=== PATIENT | male | born 1960 | race Caucasian/White ===

== ENCOUNTER → 2017-10-16 16:11 | Outpatient (CLI) | payer OTHER, SELFPAY | PROVIDERS: Visit Provider Physician Assistant | DX: Z79.899 Other long term (current) drug therapy (principal) ==

== ENCOUNTER 2020-01-07 09:45 | Emergency (ER) | payer OTHER, SELFPAY ==
[2020-01-07 09:55] VITALS: BP 135/75; PULSE 86; RESP 17; TEMP 36.9; O2SAT 98; BMI 32.4
--- NOTE | 2020-01-07 10:04 | XR_ITS ---
PROCEDURE: XR ORTHOPANTOGRAM CLINICAL INDICATION: left lower jaw swelling x 1 week. COMPARISON: No exams were available for comparison FINDINGS: No fracture or dislocation. No lytic or blastic change. There is normal mineralization. There is no evidence of periodontitis or periapical abscesses demonstrated. Bilaterally all mandibular molar and premolar teeth are absent. Other findings:The mandibular condyles are well aligned. IMPRESSION: 1. No demonstrated acute findings. Dictated by: Liliana Kirk 01/07/2020 10:47 Electronically signed by Liliana Kirk in [place] 01/07/2020 10:47
[2020-01-07 10:15] VITALS: BP 110/66; PULSE 80; RESP 20; O2SAT 98
--- NOTE | 2020-01-07 10:15 | PC.NURSE ---
PT WITH RAD AT THIS TIME
--- NOTE | 2020-01-07 10:20 | PC.NURSE ---
PT BACK FROM AT THIS TIME
--- NOTE | 2020-01-07 10:24 | PC.NURSE ---
Addendum entered by Tabatha Garcia RN 01/07/20 10:25: *starts Original Note: Spoke with Dr. Huerta and was given appointment for 9a tomorrow. States to continue the amoxicillin in addition to the medication our physician startes.
--- NOTE | 2020-01-07 10:28 | HMH.EDGENADL ---
ED Disposition Clinical Impression: Dental abscess, Dental caries Disposition: Home, Self-Care Condition on Discharge: Fair Instructions: DI for Tooth Decay, Tooth Abscess Additional Instructions: You have been evaluated for a dental abscess. Please follow-up with dentistry at 9 AM tomorrow. Take amoxicillin as prescribed. Take Tylenol and ibuprofen for pain. Return to the emergency department for any new or worsening swelling, difficulty swallowing, sore throat, headache. Referrals: Christopher Olson MD [Primary Care Provider] - Time of Disposition: 11:21 - Critical Care Critical Care Time: No Attestation: On 01/07/20, the high probability of a clinically significant, sudden or life threatening deterioration of the following system(s) required my full and direct attention, intervention and personal management. The time I documented below is in addition to time spent performing reported procedures but includes the following listed in this critical care notation. Medical Decision Making - Medical Records Medical records reviewed: Yes: I reviewed the patient's medical records. - Luis Inquiry Pt receiving controlled substance: No Vital Signs: 01/07/20 09:55 01/07/20 10:15 01/07/20 10:30 Temperature 98.5 F Temperature Source Oral Pulse Rate [Radial] 86 80 71 Respiratory Rate 17 20 20 Blood Pressure [Right Arm] 135/75 110/66 128/76 Blood Pressure Mean [Right Arm] 95 80 93 Blood Pressure Source [Right Arm] Automatic Cuff Automatic Cuff Automatic Cuff Blood Pressure Position [Right Arm] Sitting Supine 02 Sat by Pulse Oximetry 98 98 98 Oxygen Delivery Method Room Air Room Air Room Air 01/07/20 10:58 Temperature Temperature Source Pulse Rate [Radial] 78 Respiratory Rate 18 Blood Pressure [Right Arm] 125/72 Blood Pressure Mean [Right Arm] 89 Blood Pressure Source [Right Arm] Automatic Cuff Blood Pressure Position [Right Arm] Supine 02 Sat by Pulse Oximetry 97 Oxygen Delivery Method Room Air Orders (Tests/Meds): ED MEDICATIONS Discontinued Medications Generic Name Dose Route Start Last Admin Trade Name Freq PRN Reason Stop Dose Admin Ketorolac Tromethamine 15 mg 01/07/20 10:39 01/07/20 10:49 Toradol 30mg/Ml Vial IM 01/07/20 10:40 15 mg ONCE ONE Administration Lidocaine HCl 10 ml 01/07/20 10:41 01/07/20 10:50 Lidocaine 1% 10ml Mdv IJ 01/07/20 10:42 10 ml ONCE ONE Administration Medical Decision Narrative: 59-year-old male with poor dentition presenting to the emergency department with pain, swelling, dental caries. Most likely diagnosis is a periapical abscess. Will obtain Panorex. Patient is not systemically ill, doubt bacteremia or sepsis. Area of swelling is inconsistent with deep space abscess of the neck or other soft tissue spaces. Will obtain Panorex. Patient given 15 mg of IM Toradol. Dental block performed. Abscess opened with an 11 blade scalpel. Will be able to see dentistry tomorrow morning at 9 AM. General Adult HPI - General Chief complaint: Dental/Oral Stated complaint: left jaw pain and swollen Time Seen by Provider: 01/07/20 09:58 Mode of Arrival: Ambulatory Limitations: No Limitations Description of Symptoms (Recalled from ER Triage Doc. by RN): left side of jaw swollen x 3 days. Dentist started him on Amoxicillin yesterday and he feels as if it is getting worse. - History of Present Illness HPI narrative: 59-year-old male presenting to the emergency department with left-sided jaw pain. Symptoms have been present for the last 4 days but worsening in the last 24 hours. He noticed dental pain on his left lower molar. Then developed an area of painful swelling. Now feels like his whole lower jaw is swollen. Can feel swelling outside of his lower cheek. Pain is described as throbbing. Worse when he tries to eat. Has taken ibuprofen for pain. No drainage inside of his mouth. No fevers, chills, nausea, vomiting. He called nm
[2020-01-07 10:30] VITALS: BP 128/76; PULSE 71; RESP 20; O2SAT 98
[2020-01-07 10:58] VITALS: BP 125/72; PULSE 78; RESP 18; O2SAT 97
[2020-01-07 11:30] VITALS: BP 129/76; PULSE 81; RESP 18; O2SAT 95
[2020-01-07 11:42] VITALS: BP 129/76; PULSE 81; RESP 18; TEMP 36.9; O2SAT 95
== END 2020-01-07 11:44 | disposition home or self-care (01) ==
PROVIDERS: Emergency Provider Emergency Medicine; PCP Emergency Medicine
DX: K04.7 Periapical abscess without sinus (principal); K02.9 Dental caries, unspecified; I10 Essential (primary) hypertension; F41.9 Anxiety disorder, unspecified; F17.210 Nicotine dependence, cigarettes, uncomplicated; Z79.899 Other long term (current) drug therapy
CPT/HCPCS: 41800; 70355; 96372; 99284

== ENCOUNTER 2025-05-07 11:04 | Emergency (ER) | payer OTHER, SELFPAY ==
[2025-05-07 11:15] VITALS: BP 173/85; PULSE 86; RESP 18; TEMP 37; O2SAT 98; BMI 32.7
--- NOTE | 2025-05-07 11:46 | CA_ITS ---
FINAL REPORT CLINICAL HISTORY: PT HIT LT ROMERO 3 WKS AGO WITH PIECE OF WOOD HAD SWELLING AND BRUISING. LAST COUPLE OF DAYS PT HAS BEEN CRAWLING ON KNEES FOR WORK NO HAS INCREASED EDEMA AND PAIN LT KNEE AND CALF FINDINGS: DUPLEX VENOUS SONOGRAPHY OF THE LEFT LOWER EXTREMITY Multiple transverse and longitudinal scans were performed of the femoropopliteal deep venous system, with augmentation and compression maneuvers. Normal phasic flow was noted in the visualized deep venous system. No intraluminal increased echogenicity is noted to suggest thrombus. There is normal compression and augmentation of the venous structures. No abnormal venous collaterals are seen. There is a popliteal cyst with internal echoes, may be hemorrhagic. IMPRESSION: No evidence of deep venous thrombosis of the left lower extremity. Reviewed, Interpreted and Dictated by July Richardson MD Transcribed by Maggi Woo Authenticated and [facility]
--- NOTE | 2025-05-07 11:46 | CT_ITS ---
FINAL REPORT TECHNIQUE: Axial imaging of the chest is obtained after the administration of contrast. 3-D MIP reformatted images were also obtained and reviewed per PE protocol. This study was performed with techniques to keep radiation doses as low as reasonably achievable, (ALARA). Individualized dose reduction techniques using automated exposure control or adjustment of mA and/or kV according to the patient's size were employed. CLINICAL HISTORY: Short of breath, chest pain, LLE swelling FINDINGS: The pulmonary arteries are well filled. There is no evidence of pulmonary embolus. There is no aortic dissection. Heart size is normal. There is no mediastinal, hilar, or axillary lymphadenopathy. There is evidence of granulomatous disease. There is a 4 mm nodule posterior to the left major fissure, likely intrafissural lymph node. This is seen on series 5, image 68.. There is no pleural or pericardial effusion. Limited evaluation of the upper abdomen is without acute abnormality. No acute osseous abnormality. IMPRESSION: No evidence of pulmonary embolism or aortic dissection. Nodule posterior to the left major fissure, likely intrafissural lymph node. Recommend follow-up after risk stratification using Fleischner's criteria. Reviewed, Interpreted and Dictated by July Richardson MD Transcribed by Maggi Woo Authenticated and [facility]
--- NOTE | 2025-05-07 11:46 | ECG_ITS ---
APPROVED REPORT Exam: Resting ECG HR:69 bpm ECG Measurements Heart Rate 69 AXES SC 176 P 41 QRSd 97 QRS 28 QT 372 T 46 QTc 391 Conclusion SINUS RHYTHM NORMAL ECG UNCONFIRMED REPORT No STEMI. Electronically signed by : NIKKY ZAVALA, 05/07/2025 15:23:47
--- NOTE | 2025-05-07 11:48 | ED_ITS ---
Discharge Plan Disposition Patient Disposition: Home, Self-Care Prescriptions Prescriptions: New lisinopril 20 mg tablet 20 mg PO DAILY Qty: 14 0RF No Action aspirin 81 mg Tablet 81 mg PO DAILY Beet Root-Magnesium 150 mg Tablet 1 tab PO DAILY Referrals Follow up/Referrals: Leela Campuzano MD [Physician, Pulmonology] - See instructions Mg Badillo MD [Primary Care Provider, Family Practice] - See instructions Activity Restrictions/Add. Instructions Additional Instructions/Restrictions: You can wear a knee brace or Chaparro bandage to your left knee or compression stockings to help with swelling and pain in your left leg. You had a ruptured cyst in the back of your knee that likely explains your symptoms. I am prescribing you a 2-week course of your previously prescribed lisinopril to help with your high blood pressure. I do encourage you to follow-up with your primary care physician for additional refills and to ensure that your symptoms are improving. You are also found to have a pulmonary nodule in the left lung. This will need follow-up with our lung specialist, Dr. Campuzano. I have included the referral here. I encourage you to contact their office to arrange follow-up. If you develop any new or worsening symptoms, or if you become concerned for your health for any reason, return to the emergency department for evaluation. Clinical Impressions Clinical Impression: Rupture of popliteal cyst, Hypertension, Incidental pulmonary nodule Print Language Print Language: Trinidadian Discharge ED Provider: Reggie Buchanan Adult HPI General Chief complaint: PAIN Stated complaint: left leg swollen, cramping, painful Time Seen by Provider: 05/07/25 11:35 Mode of Arrival: Ambulatory Source of Information: Patient Description of Symptoms (Recalled from ER Triage Doc. by RN): pt presents to the er for LLE pain and swelling, states he hurt his leg 3 weeks ago states a block of firewood hit it, reports increased swelling and pain for the last week, reports pain 5/10, constant, and aching, denies shortness of breath or chest pain History of Present Illness HPI narrative: Roxanne Marie is a 64y male with a history of hypertension, not on any medications who presents to the emergency department for complaints of left lower extremity swelling and pain as well as chest pain and shortness of breath. Patient said 3 weeks ago, he was hit in the left peraza by a piece of wood. He had some swelling at that time but the bruising and swelling resolved. Over the last week, he has been crawling on the work for and has had worsening swelling and pain to his left calf and ankle that seems to be worse at night. He states that he has had a blood clot over 30 years ago in his leg after an injury and that this feels similar. Over the last 2 days, he also reports intermittent left-sided sharp chest pain with deep breathing. He has stopped smoking recently and states that his overall shortness of breath seems to have improved but he does still get short of breath with exertion. He is not currently on any blood thinning medications. Related Data Home Medications ?Medication ?Instructions ?Recorded ?Confirmed aspirin 81 mg tablet 81 mg PO DAILY 05/07/2504/11 magnesium oxide 150 mg-herbal 1 tab PO DAILY 05/07/25 05/07/25 drugs tablet (Beet Root-Magnesium) Previous Rx's ?Medication ?Instructions ?Recorded lisinopril 20 mg tablet 20 mg PO DAILY #14 tabs 04/11 02/01 Allergies Allergy/AdvReac Type Severity Reaction Status Date / Time No Known Allergies Allergy Verified 05/07/25 11:22 [facility] Disclaimer: The information contained in this section may have been updated after the patient was seen, as this information can be updated by other users. Medical History (Updated 05/07/25 @ 14:37 by Reggie Buchanan MD) Alcohol use Osteoarthritis Peripheral neuropathy Obesity Hyperlipidemia Hypertension Anxiety Social History Smoking Status: Former smoker tobacco type: cigarettes packs per day: 2 second hand exposure: Yes alcohol intake: current alcohol intake frequency: 3 or more drinks per day substance use type: denies use current occupational status: employed Travel in the last 8 weeks?: None household members: none housing: house Have you lived/traveled outside [place] in past 30 days?: No Contact w/someone who lives/traveled outside [place] past 30 days?: No Exposure to someone with infectious disease in past 14 days?: No Do you have a fever (greater than 100.4 F or 38 C)?: No Have you tested positive for COVID-19?: No Exposed to someone with COVID-19 in past 14 days?: No Do you have a sore throat?: No Do you have a cough?: No Do you have any weakness?: No Do you have any diarrhea?: No Are you experiencing any unusual bleeding?: No Do you have any muscle aches/pain?: No Do you have any abdominal pain?: No Are you experiencing loss of taste or smell?: No Other Medical History Have you received the Flu Vaccine for this season: No Have you received the Pneumonia Vaccine: No ROS Obtained: Yes Systems reviewed as appropriate & no additional complaints except as documented Physical Exam General General appearance: alert and in no apparent distress Head Head exam: atraumatic Eye Eye exam: Present normal appearance ENT ENT exam: Present normal external ear exam Neck Neck exam: Present full ROM Chest Chest inspection: Present symmetric chest wall rise Respiratory Respiratory exam: Present normal lung sounds bilaterally; Absent respiratory distress, wheezes or stridor Cardiovascular Cardiovascular exam: Present regular rate and normal rhythm Abdominal Exam Abdominal exam: Present soft; Absent tenderness or guarding exam: Present deferred Extremities Exam Extremities exam: Present normal inspection Expanded Lower Extremity Exam Left: Leg image: 2 1. tenderness, no significant edema, no erythema Comment: Left lower extremity: 2+ DP and PT pulses. Tenderness over the left calf and popliteal area without swelling, erythema. Back Exam Back exam: Present normal inspection Neurological Exam Neurological exam: Present alert and oriented X3 Psychiatric Psychiatric exam: Present normal affect Skin Skin exam: Present warm and dry Medical Decision Making Medical Records Screening: Per USPSTF and CDC recommendations, given the prevalence of disease in our region, it is our hospital?s policy to screen for HIV and viral Hepatitis for all patients aged 18 and over and those with ongoing risk factors. Luis Inquiry Pt receiving controlled substance: No Vital Signs: 05/07/25 11:15 Temperature 98.6 F Temperature Source Oral Pulse Rate [Left Radial] 86 Respiratory Rate 18 Blood Pressure [Right Arm] 173/85 H Blood Pressure Mean [Right Arm] 114 Blood Pressure Source [Right Arm] Automatic Cuff Blood Pressure Position [Right Arm] Sitting 02 Sat by Pulse Oximetry 98 Oxygen Delivery Method Room Air Lab Data Lab Results 05/07/25 11:55: WBC 8.5, RBC 4.34 L, Hgb 13.6 L, Hct 41.5 L, MCV 95.6 H, MCH 31.3 H, MCHC 32.8, RDW 13.6, Plt Count 229, MPV 9.1, Neut % (Auto) 62.5, Lymph % (Auto) 23.9, [place] % (Auto) 9.7 H, Eos % (Auto) 1.6, Baso % (Auto) 0.9, Neut # (Auto) 5.3, Lymph # (Auto) 2.0, [place] # (Auto) 0.8, Eos # (Auto) 0.1, Baso # (Auto) 0.1, Sodium 134 L, Potassium 4.5, Chloride 102, Carbon Dioxide 27, Anion Gap 9.5, BUN 18, Creatinine 1.30 H, Estimated Creat Clear 94, Estimated GFR 56 L , Est GFR ( Amer) 67, Glucose 92, Calcium 9.4, Magnesium 2.1, Total Bilirubin 0.7, AST 31, ALT 21, Alkaline Phosphatase 88, Total Creatine Kinase 46 L, Troponin I < 0.01, NT-Pro-B Natriuret Pep 104, Total Protein 7.9, Albumin 4.4, Globulin 3.5 H, Albumin/Globulin Ratio 1.3 05/07/25 11:55 05/07/25 11:55 Orders (Tests/Meds): ED MEDICATIONS Generic Name Dose Route Start Last Admin Trade Name Freq PRN Reason Stop Dose Admin Sodium Chloride 10 ml 05/07/25 12:57 05/07/25 12:58 Sodium Chloride 0.9% 10ml Syr (Rad Only) IV 06/06/25 12:56 10 ml NEEDED PRN Administration Maintain IV Site Discontinued Medications Generic Name Dose Route Start Last Admin Trade Name Freq PRN Reason Stop Dose Admin Iopamidol 80 ml 05/07/25 12:57 05/07/25 12:58 Iopamidol-370 (76%);100ml Bottle IV 05/07/25 12:58 80 ml ONCE ONE Administration Sodium Chloride 50 ml 05/07/25 12:57 05/07/25 12:58 0.9 % Sodium Chloride 50 Ml Vial IV 05/07/25 12:58 50 ml ONCE ONE Administration ORDERS Category Date Time Status CT angio chest PE protocol Stat Cat Scan 05/07/25 11:46 Completed BNP [NT Pro Brain Natriuretic Pep.] Stat Lab 05/07/25 11:55 Completed CBC w/Auto Diff [Complete Blood Count Auto Diff] Stat Lab 05/07/25 11:55 Completed CK [Creatine Kinase] Stat Lab 05/07/25 11:55 Completed CMP [Comprehensive Metabolic Panel] Stat Lab 05/07/25 11:55 Completed Magnesium Stat Lab 05/07/25 11:55 Completed Troponin I Q3H Lab 05/07/25 15:00 Ordered Troponin I Q3H Lab 05/07/25 18:00 Ordered Troponin I Stat Lab 05/07/25 11:55 Completed CA venous doppler LE LT Stat Y 05/07/25 11:46 Completed ECG Data Tracing #1: I reviewed this ECG and interpreted as documented below: Normal sinus rhythm. No ST elevation or depression. QTc normal at 391 Medical Decision Narrative: Roxanne Marie is a 64y male with a history of hypertension, not on any medications who presents to the emergency department for complaints of left lower extremity swelling and pain as well as chest pain and shortness of breath. Patient said 3 weeks ago, he was hit in the left peraza by a piece of wood. He had some swelling at that time but the bruising and swelling resolved. Over the last week, he has been crawling on the work for and has had worsening swelling and pain to his left calf and ankle that seems to be worse at night. He states that he has had a blood clot over 30 years ago in his leg after an injury and that this feels similar. Over the last 2 days, he also reports intermittent left-sided sharp chest pain with deep breathing. He has stopped smoking recently and states that his overall shortness of breath seems to have improved but he does still get short of breath with exertion. He is not currently on any blood thinning medications. On arrival, patient is hypertensive but otherwise hemodynamically stable. In no acute respiratory distress with appropriate oxygen saturation. Physical exam, stated above, revealed overall well-appearing male in no respiratory distress. Cardiopulmonary exam without wheezing, rales or rhonchi. No murmurs or rubs. Left lower extremity shows tenderness over the left calf and popliteal area without swelling or erythema. He has 2+ DP and PT pulses and sensation grossly intact distally. No motor deficits. Color appears well. Differential diagnosis includes, but is not limited to: DVT, pulmonary embolism, rhabdomyolysis, Garcia's cyst, pneumonia, ACS, among others. The most morbid conditions were considered and workup was based on these. Workup included EKG, CT angio pulmonary embolism, left lower extremity DVT ultrasound, CBC, CMP, magnesium level, CK, troponin, BNP. EKG without ischemic changes. See interpretation above. Laboratory studies are grossly nonactionable. No leukocytosis. Mild anemia with hemoglobin of 13.6, hematocrit of 41.5. Platelets within normal limits. Mild hyponatremia at 134. Electrolytes otherwise within normal limits. No PENELOPE and creatinine is close to baseline at 1.3. BUN is normal. Magnesium normal at 2.1. Troponin less than 0.01. CK was normal at 46. CT pulmonary embolism interpreted by me personally. No pulmonary embolism, aortic dissection. Patient does have an incidentally found nodule in the left major fissure. Will give follow-up with pulmonology. DVT ultrasound showed no evidence of DVT. Patient likely has a ruptured hemorrhagic cyst in the popliteal area. This likely explains patient's symptomatology. Encourage patient to use compression stockings/Chaparro bandages to help with pain. Also encouraged him to follow-up with his primary care doctor. Patient states that he has tried to get in with his primary doctor early this month but is completely out of his lisinopril 20 mg daily that he had been taking for many years. Will send 2-week prescription but encouraged him to seek care with his primary care doctor for continued refills and management of his chronic conditions. All questions were answered. He demonstrated understanding and was in agreement this plan. He was then discharged from the emergency department in stable condition. Critical Care Critical Care Time Critical Care Time: No
[2025-05-07 12:00] LABS: Hematocrit 41.5 % (42.0-52.0); Hemoglobin 13.6 g/dL (14.1-18.0); Immature Granulocytes % 1.4 %; Mean Corpuscular HGB Conc 32.8 g/dL (31.8-35.4); Mean Corpuscular Hemoglobin 31.3 pg (27.0-31.2); Mean Corpuscular Volume 95.6 fl (80-94); Nucleated Red Blood Cells % 0 %; Platelet Count 229 K/mm3 (142-424); Red Blood Count 4.34 M/mm3 (4.60-6.20); Red Cell Distribution Width-SD 47.7 fL; White Blood Count 8.5 K/mm3 (4.8-10.8)
[2025-05-07 12:13] LABS: Alanine Aminotransferase 21 U/L (12-78); Albumin Level 4.4 g/dl (3.5-5.0); Albumin/Globulin Ratio 1.3 (1.1-1.8); Alkaline Phosphatase 88 U/L (38-126); Anion Gap 9.5 mEq/L (5-15); Aspartate Amino Transferase 31 U/L (17-59); Bilirubin,Total 0.7 mg/dl (0.2-1.3); Blood Urea Nitrogen 18 mg/dl (9-20); Calcium 9.4 mg/dl (8.4-10.2); Carbon Dioxide 27 mmol/L (22.0-30.0); Chloride 102 mmol/L (98-107); Creatine Kinase 46 U/L (55-170); Creatinine Clearance Estimated 94 mL/min (50-200); Creatinine,Serum 1.30 mg/dl (0.66-1.25); Estimated Glomerular Filt Rate 56 ml/min (>60); GFR (African American) 67 ML/MIN (>60); Globulin 3.5 g/dL (1.3-3.2); Glucose 92 mg/dl (74-100); Magnesium 2.1 mg/dl (1.6-2.3); Potassium 4.5 mmoL/L (3.5-5.1); Sodium 134 mmol/L (136-145); Total Protein,Serum 7.9 g/dl (6.3-8.2)
[2025-05-07 12:23] LABS: NT Pro Brain Natriuretic Pep. 104 pg/mL (0-125)
[2025-05-07 12:27] LABS: Troponin I < 0.01 ng/ml (0.00-0.034)
[2025-05-07] MEDS: SODIUM CHLORIDE 0.9% 10ML SYR (RAD ONLY) 10 ML IV (12:58)
[2025-05-07] MEDS: IOPAMIDOL-370 (76%);100ML BOTTLE 80 ML IV (12:58)
[2025-05-07] MEDS: 0.9 % SODIUM CHLORIDE 50 ML VIAL IV (12:58)
--- NOTE | 2025-05-07 13:35 | PC.NURSE ---
Gave the patient a blanket
[2025-05-07 15:09] VITALS: BP 173/85; PULSE 86; RESP 18; TEMP 37; O2SAT 98
== END 2025-05-07 15:12 | disposition home or self-care (01) ==
PROVIDERS: Emergency Provider Student in an Organized Health Care Education/Training Program; PCP Family Medicine
DX: R07.9 Chest pain, unspecified (principal); R06.02 Shortness of breath; M66.0 Rupture of popliteal cyst; R91.1 Solitary pulmonary nodule; I10 Essential (primary) hypertension; Z87.891 Personal history of nicotine dependence
CPT/HCPCS: 71275; 80053; 82550; 83735; 83880; 84484; 85025; 93005; 93971; 99284; 99285; Q9967